=== PATIENT | female | born 1945 | race Caucasian/White ===

== ENCOUNTER → 2016-05-16 | Outpatient (CLI) | payer MEDICARE ==
[~2016-05-16] MED LIST: GBPN300C PO; METO-272 PO; SULF1TAB38 PO
--- OUTSIDE RECORDS SUMMARY | 2016-05-16 14:25 | XMS REPORT | Continuity of Care Document ---
Author Author [facility] Organization [facility] Address Unknown Phone Unavailable Care Team Providers Care Ink Maker Name Role Phone Jo Ann Ward PCP [phone] Source Comments Some departments are not documenting in the electronic medical record. If you do not see the information that you expected, contact Release of Information in the Health Information Management department at [phone] for further assistance in locating additional records.[facility] Active Allergies and Adverse Reactions No Known Allergies Current Medications Prescription Sig. Disp. Refills Start End Date Status Date amLODIPine (NORVASC) 10 Take 10 mg by mouth Active mg tablet daily. budesonide/formoterol Inhale 2 Puffs by mouth Active (SYMBICORT) 160/4.5 mcg twice daily. HFAA inhalation PARoxetine (PAXIL) 20 mg Take 20 mg by mouth Active tablet daily. ibuprofen (MOTRIN) 800 mg Take 800 mg by mouth Active tablet every 8 hours as needed. albuterol (PROAIR HFA) 90 Inhale 1-2 Puffs by mouth Active mcg/actuation inhaler every 6 hours as needed. HYDROcodone/acetaminophen Take 1-2 Tabs by mouth 50 Tab 1 06/28/19 Active (NORCO; VICODIN) 5-325 mg every 4 hours as needed 14 tablet for Pain. esomeprazole DR(+) Take 1 Cap by mouth every 30 Cap 2 09/07/19 Active (NEXIUM) 20 mg capsule morning. 14 LACTOBACILLUS ACIDOPHILUS Take by mouth. Active (PROBIOTIC PO) milnacipran(+) (SAVELLA) Take by mouth twice Active 25 mg tablet daily. 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 Disproportion of reconstructed breast 01/17/2014 History of esophageal stricture 08/30/2013 Encounter for breast reconstruction following mastectomy 07/26/2013 Asthma 06/27/2013 Breast cancer of upper-inner quadrant of right female breast (HCC) 2013 Overview: s/p right breast US core needle biopsy 05/04/13 Via [facility] cStage II T2N0M0 grade 2 invasive mammary carcinoma, lobular type 2.5 cm by US ER 95% MN 80% Her-2 not amplified on FISH Ki-67 15% s/p bilateral simple mastectomies and right SNBx with reconstruction ([facility] / Korentager) 07/15/13 ICC Stage II T2N0M0 RIGHT grade 2 ILC (3:00) 2.7 cm 2 sentinel nodes negative LEFT no cancer found ER 100% MN 70% Her-2 negative Ki-67 10% Oncology: Dr. Acosta Tamoxifen 10/2013 - d/c 02/2014 due to side effects Oncotype score=6 Resolved Problems Problem Noted Date Resolved Date Surgical wound, non healing 08/02/2013 01/17/2014 Social History Tobacco Use Types Packs/Day Years Used Date Light Tobacco Smoker 45 Smokeless Tobacco: Never Used Tobacco Cessation: Counseling Given: Yes Comments: E-cig Last Filed Vital Signs Vital Sign Reading Time Taken Blood Pressure 142/83 07/12/2015 12:51 PM CDT Pulse 84 07/12/2015 12:51 PM CDT Temperature 36.3 C (97.3 F) 07/12/2015 12:51 PM CDT Respiratory Rate 16 07/12/2015 12:51 PM CDT Height 1.549 m (5' 0.98") 07/12/2015 12:51 PM CDT Weight 63.957 kg (141 lb) 07/12/2015 12:51 PM CDT Body Mass Index 26.66 07/12/2015 12:51 PM CDT Oxygen Saturation 98% 07/12/2015 12:51 PM CDT Plan of Care Date Type Specialty Providers Description 07/09/2016 Appointment Breast Clinic / Breast Tere Nichole PA-C [place] [address] [place] [address] [phone] (Fax) Health Maintenance Due Date Last Done Comments Hepatitis C Screening 1945 Physical (Comprehensive) 1953 Exam Pertussis Vaccine 1957 Tetanus Vaccine 1963 Breast Cancer Screening 1986 Colorectal Cancer 1996 Screening Shingles Vaccine 2006 Osteoporosis Screening 2011 Prevnar/Pneumovax (#1) 2011 Influenza Vaccine 12/20/2015 Results from Last 3 Months Not on file
[2016-05-16 14:37] LABS: BASOPHILS # (AUTO) 0.1 10^3/uL (0.0-0.1); BASOPHILS % (AUTO) 2 % (0-10); EOSINOPHILS # (AUTO) 0.1 10^3/uL (0.0-0.3); EOSINOPHILS % (AUTO) 2 % (0-10); LYMPHOCYTES # (AUTO) 1.7 X 10^3 (1.0-4.0); LYMPHOCYTES % (AUTO) 30 % (12-44); MEAN CORPUSCULAR HEMOGLOBIN 30 PG (25-34); MEAN CORPUSCULAR HGB CONC 33 G/DL (32-36); MEAN CORPUSCULAR VOLUME 90 FL (80-99); MEAN PLATELET VOLUME 10.2 FL (7.4-10.4); MONOCYTES # (AUTO) 0.4 X 10^3 (0.0-1.0); MONOCYTES % (AUTO) 8 % (0-12); NEUTROPHILS # (AUTO) 3.5 X 10^3 (1.8-7.8); NEUTROPHILS % (AUTO) 60 % (42-75); PLATELET COUNT 243 10^3/uL (130-400); RED BLOOD COUNT 4.71 10^6/uL (4.35-5.85); RED CELL DISTRIBUTION WIDTH 12.4 % (10.0-14.5); WHITE BLOOD COUNT 5.9 10^3/uL (4.3-11.0)
[2016-05-16 14:40] LABS: KETONES,URINE NEGATIVE (NEGATIVE); LEUKOCYTE ESTERASE ,URINE 2+ (NEGATIVE); NITRITE,URINE NEGATIVE (NEGATIVE); PH,URINE 6 (5-9); PROTEIN,URINE 1+ (NEGATIVE); UROBILINOGEN,URINE NORMAL (NORMAL)
[2016-05-16 14:55] LABS: ALBUMIN 4.3 G/DL (3.2-4.5); BILIRUBIN,TOTAL 0.4 MG/DL (0.1-1.0); CALCIUM 9.3 MG/DL (8.5-10.1); CREATININE SERUM 0.93 MG/DL (0.60-1.30); POTASSIUM 4.1 MMOL/L (3.6-5.0); TOTAL PROTEIN 7.1 G/DL (6.4-8.2)
[2016-05-16 14:56] LABS: CALCIUM OXALATE CRYSTALS,UR MODERATE /LPF
[2016-05-17 10:02] LABS: BILIRUBIN,URINE 1+ (NEGATIVE)
== END ==
LOC: LAB 14:22
PROVIDERS: ATTEND Nurse Practitioner Family
DX: R50.9 Fever, unspecified (principal); R53.83 Other fatigue; R52 Pain, unspecified
CPT/HCPCS: 36415; 80053; 81000; 85025; 87804

== ENCOUNTER → 2016-05-20 | Outpatient (CLI) | payer MEDICARE ==
[~2016-05-20] MED LIST changes: +CATHETER FLUSH 10 ML SYR IV PRN; +IOHEXOL 350 MG/ML 100 ML (OMNIPAQUE 350) VIAL IV ONE; +NS 100 ML (IVPB) BAG IV ONE
--- OUTSIDE RECORDS SUMMARY | 2016-05-20 09:22 | XMS REPORT | Continuity of Care Document ---
Author Author [facility] Organization [facility] Address Unknown Phone Unavailable Care Team Providers Care Explosive Ordnance Specialist Name Role Phone Jo Ann Ward PCP [phone] Source Comments Some departments are not documenting in the electronic medical record. If you do not see the information that you expected, contact Release of Information in the Health Information Management department at [phone] for further assistance in locating additional records.[facility] Active Allergies and Adverse Reactions No Known [...] breast US core needle biopsy 05/04/13 Via [facility] cStage II T2N0M0 grade 2 invasive mammary carcinoma, lobular type 2.5 cm by US ER 95% CT 80% Her-2 not amplified on FISH Ki-67 15% s/p bilateral simple mastectomies and right SNBx with reconstruction ([employer]oration[employer] / Korentager) 07/15/13 ICC Stage II T2N0M0 RIGHT grade 2 ILC (3:00) 2.7 cm 2 sentinel nodes negative LEFT no cancer found ER 100% CT 70% Her-2 negative Ki-67 10% Oncology: Dr. [...] Breast Clinic / Breast Tere Nichole PA-C [place] [address] [place] [address] [phone] (Fax) Health Maintenance Due Date Last Done Comments Hepatitis C Screening 1945 Physical (Comprehensive) 1953 Exam Pertussis Vaccine 1957 Tetanus Vaccine 1963 Breast Cancer Screening 1986 Colorectal Cancer 1996 Screening Shingles Vaccine 2006 Osteoporosis Screening 2011 Prevnar/Pneumovax (#1) 2011 Influenza Vaccine 12/20/2015 Results from Last 3 Months Not on file
--- NOTE | 2016-05-20 10:35 | Diagnostic Imaging Report ---
PROCEDURE: CT chest with contrast only. TECHNIQUE: Multiple contiguous axial images were obtained through the chest after administration of intravenous contrast. INDICATION: Cough. History of smoking. 75 mL of Omnipaque 350 is administered intravenously. FINDINGS: There is mild interstitial scarring seen in the right upper lobe anteriorly and minimal atelectasis in the right lung base. There is otherwise no significant consolidation, lung mass or suspicious nodule seen. There is no pleural effusion. No pericardial effusion. The heart size is normal. The thoracic aorta is normal in caliber. No mediastinal mass or significantly enlarged lymph node is seen. No hilar adenopathy. Normal opacification of the central pulmonary artery seen. The axilla demonstrate no lymphadenopathy or mass. Bilateral breast implants are noted with normal symmetric appearance. There is a simple hepatic cyst superiorly in the right hepatic lobe measuring 7.9 cm in size. The osseous structures demonstrate an old fracture through the mid portion of the sacrum with minimal osseous bridging seen and degenerative changes of the thoracic spine. IMPRESSION: Minimal scarring in the right upper lobe. Old fracture in the sternum. No acute process. Dictated by: Dictated on workstation # [id number]
== END ==
LOC: RAD 09:18
PROVIDERS: ATTEND Nurse Practitioner Family
DX: R05 Cough (principal); Z87.891 Personal history of nicotine dependence
CPT/HCPCS: 71260

== ENCOUNTER 2016-09-06 15:00 | Emergency (ER) | payer MEDICARE ==
[~2016-09-06] VITALS: Ht 154.9 cm; Wt 59.0 kg
[~2016-09-06 15:00] MED LIST changes: -CATHETER FLUSH 10 ML SYR IV PRN; -IOHEXOL 350 MG/ML 100 ML (OMNIPAQUE 350) VIAL IV ONE; -NS 100 ML (IVPB) BAG IV ONE
[2016-09-06 15:05] VITALS: BP 144/93
[2016-09-06] MEDS ORDERED: AMLO10TA2 PO (15:21)
[2016-09-06] MEDS ORDERED: PARO40TA PO (15:21)
[2016-09-06] MEDS ORDERED: HYDR-3812 PO (15:21)
--- NOTE | 2016-09-06 15:55 | ED Lower Extremity ---
General Chief Complaint: Trauma-Non Activation Stated Complaint: L ARM/ELBOW INJ Nursing Triage Note: PT TO ED 5 CO OF FALL LAST PM, STATES SLIPPED ON WET FLOOR, STATES HIT HEAD AND HAD SMALL LENGTH OF LOC, HAS L WRIST INJURY Nursing Sepsis Screen: No Definite Risk Source: patient Exam Limitations: no limitations History of Present Illness Time seen by provider: 15:53 Initial Comments To ER with complaints of injuries sustained during a fall last night. She states she went to the refrigerator to get a glass of tea. The picture of tea spilled and she slipped and falling backwards striking her head and briefly losing consciousness. She awakened to notice a severe headache and vomiting last night. Today she states that her head is somewhat sore but headache is much better and she does not have any nausea. She denies neck pain. She does report that her low back is sore. She also has some pain and swelling to the left wrist. Pain to the left elbow. Not on any blood thinners and this does include aspirin. Location Injury Occurred: HOME Onset: yesterday Severity: moderate Method of Injury: unknown Modifying Factors: Worse With Movement Allergies and Home Medications Allergies Coded Allergies: No Known Drug Allergies (Unverified , 01/23/11) Home Medications Amlodipine Besylate 10 Mg Tablet, 10 MG PO DAILY, (Reported) Hydrocodone/Acetaminophen 1 Each Tablet, 1 EACH PO Q6H PRN PRN for PAIN, ( Reported) Paroxetine HCl 40 Mg Tablet, 40 MG PO DAILY, (Reported) Constitutional: see HPI EENTM: see HPI Respiratory: no symptoms reported Cardiovascular: no symptoms reported Genitourinary: no symptoms reported Skin: no symptoms reported Psychiatric/Neurological: No Symptoms Reported Past Bmwnrdt-Lvftnx-Ftsvvr Hx Patient Social History Alcohol Use: Denies Use Recreational Drug Use: Yes (smoke) Smoking Status: Current Everyday Smoker Type Used: Cigarettes Recent Foreign Travel: No Contact w/Someone Who Travel: No Recent Infectious Disease Expo: No Recent Hopitalizations: No Immunizations Up To Date Tetanus Booster (TDap): More than 5yrs Cardiovascular Hx Cardiac Disorders: No Physical Exam Vital Signs Vital Sign - Last 12Hours 09/06/16 15:05 Temp 97.9 Pulse 102 Resp 18 B/P (MAP) 144/93 Pulse Ox 93 Capillary Refill : Less Than 3 Seconds General Appearance: WD/WN, no apparent distress HEENT: PERRL/EOMI, normal ENT inspection Neck: non-tender, full range of motion Respiratory: normal breath sounds, no respiratory distress, no accessory muscle use Gastrointestinal: normal bowel sounds, non tender, soft Hips: bilateral hip non-tender, bilateral hip normal inspection, bilateral hip normal range of motion Legs: bilateral leg non-tender, bilateral leg normal inspection, bilateral leg normal range of motion Knees: bilateral knee non-tender, bilateral knee normal inspection, bilateral knee normal range of motion Feet: bilateral foot non-tender, bilateral foot normal inspection, bilateral foot normal range of motion Neurologic/Psychiatric: alert, normal mood/affect, oriented x 3 Skin: normal color, warm/dry Comments There is no deformity at the elbow. There is pain at the elbow. There is erythema and swelling at the left wrist as well as decreased range of motion. Small abrasion to the left lateral eyebrow. No ecchymosis. Progress/Results/Core Measures Results/Orders My Orders Orders - DONA SUN APRN Ct Head/Cervical Spine Wo (09/06/16 15:43) Elbow, Left, 3 Views (09/06/16 15:43) Wrist, Left, 3 Views Or More (09/06/16 15:43) Ct Lumbar Spine Wo (09/06/16 15:52) Wrist-Garrison (09/06/16 17:27) Cockup Splint (09/06/16 17:27) Vital Signs/I&O Vital Sign - Last 12Hours 09/06/16 15:05 Temp 97.9 Pulse 102 Resp 18 B/P (MAP) 144/93 Pulse Ox 93 Blood Pressure Mean: 110 Diagnostic Imaging Diagonstic Imaging: CT Comments NAME: CHANELLE CAAL [facility] REC#: [id number] PT STATUS: REG ER : 1945 PHYSICIAN: DONA SUN APRN ADMIT DATE: 09/06/16/ER Signed Date of Exam:09/06/16 WRIST, LEFT, 3 VIEWS OR MORE INDICATION: Fall. Pain. COMPARISON: None. EXAMINATION: Three views of the left wrist were obtained. FINDINGS: No acute fracture, malalignment or osseous destructive process is seen. There are fairly severe degenerative changes at the scaphotrapezial articulation and at the trapezial first metacarpal articulation at the base of the thumb with joint space narrowing and hypertrophic spurring. There is some subtle chondrocalcinosis and in the triangular fibrocartilage complex and there is some subchondral degenerative cystic change in the distal ulna. IMPRESSION: No acute fracture is suspected. Degenerative changes as described. Dictated by: Dictated on workstation # [id number] Dict: 09/06/16 1623 Trans: 09/06/16 1643 [facility] [id number] Interpreted by: ALYSA DOMINGUEZ DO Electronically signed by: ALYSA DOMINGUEZ DO 09/06/161642 NAME: CHANELLE CAAL [facility] REC#: [id number] PT STATUS: REG ER : 1945 PHYSICIAN: DONA SUN APRN ADMIT DATE: 09/06/16/ER Signed Date of Exam:09/06/16 ELBOW, LEFT, 3 VIEWS INDICATION: Fall. Pain. COMPARISON: None. EXAMINATION: Three views of the left elbow were obtained. FINDINGS: No acute fracture, malalignment or osseous destructive process is seen. IMPRESSION: Negative left elbow. Dictated by: Dictated on workstation # [id number] Dict: 09/06/16 1622 Trans: 09/06/161624 [facility] [id number] Interpreted by: ALYSA DOMINGUEZ DO Electronically signed by: ALYSA DOMINGUEZ DO 09/06/165 NAME: CHANELLE CAAL MED REC#: [id number] PT STATUS: REG ER : 1945 PHYSICIAN: DONA SUN APRN ADMIT DATE: 09/06/16/ER Draft Date of Exam:09/06/16 CT LUMBAR SPINE WO Procedure: CT lumbar spine without contrast. Technique: Multiple contiguous axial images were obtained through the lumbar spine without the use of intravenous contrast. Sagittal and coronal reformations were then performed. Indication: Low back pain after fall last night with additional bilateral lower extremity radiculopathy. Comparison: None. Discussion: Mild levoscoliosis of the lumbar spine centered at L4. Degenerative disc disease is noted throughout the lumbar spine, greatest at the L5-S1 level, which is advanced. Advanced facet arthropathy is present throughout the lower lumbar spine. No acute fracture or abnormal subluxation identified. Small Schmorl's nodes are incidentally noted, chronic and benign. There are diffuse disc bulges noted at the L2-L3, L3-L4, L4-L5 and L5-S1 levels which likely contribute to at least moderate, if not severe, central canal stenosis though evaluation is limited due to lack of intrathecal contrast. Recommend noncontrast MRI of the lumbar spine on a nonemergent basis for further evaluation, as clinically indicated. No sacral fracture identified. Atherosclerotic plaque is noted throughout the aorta which is normal in caliber. The paraspinal soft tissues are unremarkable. Moderate degenerative changes are present within the bilateral sacroiliac joints. Large cyst within the right hepatic lobe is incompletely viewed though appears grossly unchanged from CT 08/30/2015. Impression: 1. No acute fracture identified. 2. Degenerative changes of the lumbar spine with likely moderate to severe central canal stenosis at multiple levels. Further evaluation could be performed with noncontrast MRI, as clinically indicated. Dictated on workstation # [id number] Dict: 09/06/16 1658 Trans: 09/06/16 1712 [facility] [id number] Interpreted by: LAUREN BYERS MD Electronically signed by: NAME: CHANELLE CAAL [facility] REC#: [id number] PT STATUS: REG ER : 1945 PHYSICIAN: DONA SUN APRN ADMIT DATE: 09/06/16/ER Draft Date of Exam:09/06/16 CT HEAD/CERVICAL SPINE WO PROCEDURE: CT head and CT cervical spine without contrast. TECHNIQUE: Multiple contiguous axial images were obtained through the brain and cervical spine without the use of intravenous contrast. Sagittal and coronal reformations through the cervical spine were then performed. INDICATION: Status post fall, hitting head last night. Positive loss of consciousness. Vomiting, headache, neck tightness. CORRELATION STUDY: None. FINDINGS: CT head: There is generalized atrophic changes with prominence of the ventricles and sulci. Scattered decreased attenuation likely owing to chronic small vessel ischemic disease. No suggestion of intracranial hemorrhage. No midline shift or mass effect. There is presence of intracranial vascular calcification of the terminal ICAs. The bony calvarium is intact. The visualized paranasal sinuses and mastoid air cells are clear. CT cervical spine: Cervical spine alignment is relatively anatomic, apart from slight tilting of the head towards the left. This may be positional. The cervical vertebral body heights demonstrate mild loss of height, diffusely. However, no evidence for acute compression deformity or fracture is suggested. Marked disc space narrowing, particularly at the C4-C5, C5-C6 and C6-C7 levels. Prominent endplate osteophyte results in mild osseous encroachment and narrowing of foramina, particularly the C5-C6 level on the left. Asymmetric hypertrophic facet arthropathy, most pronounced at the C4-C5 level on the left. Prominent calcification of the carotid bifurcations. IMPRESSION: CT head: 1. Negative for acute traumatic intracranial abnormality. 2. Generalized atrophic changes and changes of small vessel ischemic disease. CT cervical spine: 1. Negative for acute fracture or traumatic subluxation. There is, however, rather pronounced multilevel cervical spondylosis with disc space narrowing and hypertrophic facet arthropathy. Dictated on workstation # [id number] Dict: 09/06/16 1659 Trans: 09/06/16 1717 [facility] [id number] Interpreted by: VANDANA TOLLIVER DO Electronically signed by: Departure Impression Impression: Primary Impression: Concussion with < 1 hr loss of consciousness Disposition: 01 HOME, SELF-CARE Condition: Stable Departure-Patient Inst. Decision time for Depature: 17:19 Referrals: SEE KERR MD (PCP/Family) Primary Care Physician Patient Instructions: Concussion, Adult (DC) Add. Discharge Instructions: 1. Tylenol for any headaches 2. Return to ER for any concerns 3. See your doctor next week 4. Return to ER for any uncontrollable vomiting, severe headaches or other concerns. All discharge instructions reviewed with patient and/or family. Voiced understanding. Scripts Hydrocodone/Acetaminophen (Jacob 5-325 Tablet) 1 Each Tablet 1 EACH PO Q4H Y for PAIN-MODERATE TO SEVERE, #14 TAB Prov: DONA SUN APRN 09/06/16 Copy Copies To 1: SEE KERR MD, PETER J APRN September 06, 2016 15:55
--- NOTE | 2016-09-06 16:24 | Diagnostic Imaging Report ---
INDICATION: Fall. Pain. COMPARISON: None. EXAMINATION: Three views of the left elbow were obtained. FINDINGS: No acute fracture, malalignment or osseous destructive process is seen. IMPRESSION: Negative left elbow. Dictated by: Dictated on workstation # [id number]
--- NOTE | 2016-09-06 16:31 | Diagnostic Imaging Report ---
INDICATION: Fall. Pain. COMPARISON: None. EXAMINATION: Three views of the left wrist were obtained. FINDINGS: No acute fracture, malalignment or osseous destructive process is seen. There are fairly severe degenerative changes at the scaphotrapezial articulation and at the trapezial first metacarpal articulation at the base of the thumb with joint space narrowing and hypertrophic spurring. There is some subtle chondrocalcinosis and in the triangular fibrocartilage complex and there is some subchondral degenerative cystic change in the distal ulna. IMPRESSION: No acute fracture is suspected. Degenerative changes as described. Dictated by: Dictated on workstation # [id number]
--- NOTE | 2016-09-06 17:12 | Diagnostic Imaging Report ---
Procedure: CT lumbar spine without contrast. Technique: Multiple contiguous axial images were obtained through the lumbar spine without the use of intravenous contrast. Sagittal and coronal reformations were then performed. Indication: Low back pain after fall last night with additional bilateral lower extremity radiculopathy. Comparison: None. Discussion: Mild levoscoliosis of the lumbar spine centered at L4. Degenerative disc disease is noted throughout the lumbar spine, greatest at the L5-S1 level, which is advanced. Advanced facet arthropathy is present throughout the lower lumbar spine. No acute fracture or abnormal subluxation identified. Small Schmorl's nodes are incidentally noted, chronic and benign. There are diffuse disc bulges noted at the L2-L3, L3-L4, L4-L5 and L5-S1 levels which likely contribute to at least moderate, if not severe, central canal stenosis though evaluation is limited due to lack of intrathecal contrast. Recommend noncontrast MRI of the lumbar spine on a nonemergent basis for further evaluation, as clinically indicated. No sacral fracture identified. Atherosclerotic plaque is noted throughout the aorta which is normal in caliber. The paraspinal soft tissues are unremarkable. Moderate degenerative changes are present within the bilateral sacroiliac joints. Large cyst within the right hepatic lobe is incompletely viewed though appears grossly unchanged from CT 08/30/2015. Impression: 1. No acute fracture identified. 2. Degenerative changes of the lumbar spine with likely moderate to severe central canal stenosis at multiple levels. Further evaluation could be performed with noncontrast MRI, as clinically indicated. Dictated by: Dictated on workstation # [id number]
--- NOTE | 2016-09-06 17:17 | Diagnostic Imaging Report ---
PROCEDURE: CT head and CT cervical spine without contrast. TECHNIQUE: Multiple contiguous axial images were obtained through the brain and cervical spine without the use of intravenous contrast. Sagittal and coronal reformations through the cervical spine were then performed. INDICATION: Status post fall, hitting head last night. Positive loss of consciousness. Vomiting, headache, neck tightness. CORRELATION STUDY: None. FINDINGS: CT head: There is generalized atrophic changes with prominence of the ventricles and sulci. Scattered decreased attenuation likely owing to chronic small vessel ischemic disease. No suggestion of intracranial hemorrhage. No midline shift or mass effect. There is presence of intracranial vascular calcification of the terminal ICAs. The bony calvarium is intact. The visualized paranasal sinuses and mastoid air cells are clear. CT cervical spine: Cervical spine alignment is relatively anatomic, apart from slight tilting of the head towards the left. This may be positional. The cervical vertebral body heights demonstrate mild loss of height, diffusely. However, no evidence for acute compression deformity or fracture is suggested. Marked disc space narrowing, particularly at the C4-C5, C5-C6 and C6-C7 levels. Prominent endplate osteophyte results in mild osseous encroachment and narrowing of foramina, particularly the C5-C6 level on the left. Asymmetric hypertrophic facet arthropathy, most pronounced at the C4-C5 level on the left. Prominent calcification of the carotid bifurcations. IMPRESSION: CT head: 1. Negative for acute traumatic intracranial abnormality. 2. Generalized atrophic changes and changes of small vessel ischemic disease. CT cervical spine: 1. Negative for acute fracture or traumatic subluxation. There is, however, rather pronounced multilevel cervical spondylosis with disc space narrowing and hypertrophic facet arthropathy. Dictated by: Dictated on workstation # [id number]
[2016-09-06] MEDS ORDERED: HYDR-757 PO (17:28)
== END 2016-09-06 17:38 | disposition home or self-care (01) ==
LOC: EDUNIT# 15:00 → ER 15:01
DX: S06.0X1A Concussion with loss of consciousness of 30 minutes or less, initial encounter (principal); S69.92XA Unspecified injury of left wrist, hand and finger(s), initial encounter; S00.81XA Abrasion of other part of head, initial encounter; S39.92XA Unspecified injury of lower back, initial encounter; M47.812 Spondylosis without myelopathy or radiculopathy, cervical region; M47.816 Spondylosis without myelopathy or radiculopathy, lumbar region; F17.210 Nicotine dependence, cigarettes, uncomplicated; W01.0XXA Fall on same level from slipping, tripping and stumbling without subsequent striking against object, initial encounter; Y92.010 Kitchen of single-family (private) house as the place of occurrence of the external cause; Y99.8 Other external cause status
CPT/HCPCS: 70450; 72125; 72131; 73080; 73110; 99283